=== PATIENT | female | born 1965 | race Caucasian/White ===

== ENCOUNTER 2017-08-28 08:31 | Emergency (ER) | payer OTHER ==
[2017-08-28] MEDS ORDERED: ONDANSETRON HCL INJ/PF 4 MG/2 ML SDV IV ONE (09:19)
[2017-08-28] MEDS ORDERED: ASPIRIN 81 MG TABLET, CHEWABLE PO ONE (09:19)
[2017-08-28] MEDS ORDERED: MAG HYDROX/AL HYDROX/SIMETH SUSP 30 ML UDCUP PO ONE (09:20)
[2017-08-28] MEDS ORDERED: LIDOCAINE 2% VISCOUS SOLN 20 ML UDCUP PO ONE (09:20)
[2017-08-28] MEDS ORDERED: METOCLOPRAMIDE HCL ORAL SOLN 10 MG/10 ML UDCUP PO ONE (09:20)
--- NOTE | 2017-08-28 09:25 | ER Document Report ---
ED General - General Chief Complaint: Abdominal Pain Stated Complaint: ABDOMINAL PAIN Time Seen by Provider: 08/28/17 09:16 Mode of Arrival: Ambulatory Information source: Patient, Relative Notes: 52-year-old female with past medical history of depression, anxiety presents with complaint of chest and abdominal pain. Patient states abdominal pain started one year prior to arrival. She states over the last week it has progressively worsened. Pain was initially only in the left upper quadrant but now she complains of epigastric and right upper quadrant abdominal pain. Patient's last bowel movement was yesterday. She denies any black or bloody stools. Patient has had associated nausea without vomiting. Patient's abdominal pain worsens with fatty food. Patient's chest pain is described as pressure-like. She states she awoke this morning feeling panicked and has had substernal pressure like discomfort since that time. She denies any associated nausea, lightheadedness, shortness of breath, radiation of pain. Patient states that she thinks this is secondary to anxiety. When asked what she was anxious about she says "I have a lot going on". Patient is tearful during exam. She has not tried taking anything for this pain. TRAVEL OUTSIDE OF THE [place] IN LAST 30 DAYS: No - HPI Onset/Duration: Gradual, Worse Quality of pain: Achy, Fullness, Pressure Severity: Mild Exacerbated by: Food Relieved by: Denies - Related Data Allergies/Adverse Reactions: No Known Allergies Allergy (Verified 08/28/17 08:32) Past Medical History - General Information source: Patient - Social History Smoking Status: Never Smoker Frequency of alcohol use: None Drug Abuse: None Lives with: Spouse/Significant other Family History: Reviewed & Not Pertinent Patient has suicidal ideation: No Patient has homicidal ideation: No - Medical History Medical History: Other - Depression, anxiety Review of Systems - Review of Systems Notes: Patient denies fever, chills, vomiting, headache, ear pain, sore throat, cough , shortness of breath, abdominal pain, back pain, dysuria, hematuria, rash, SI/ HI. Physical Exam - Vital signs Vitals: Temp Pulse Resp BP Pulse Ox 97.8 F 84 16 131/81 H 94 08/28/17 08:37 08/28/17 08:37 08/28/17 08:37 08/28/17 08:37 08/28/17 08:37 Interpretation: Normal. No: Tachycardic, Febrile - Notes Notes: PHYSICAL EXAMINATION: GENERAL: Well-appearing, well-nourished and in no acute distress. HEAD: Atraumatic, normocephalic. EYES: Pupils equal round and reactive to light, extraocular movements intact, conjunctiva are normal. ENT: Nares patent, oropharynx clear without exudates. Moist mucous membranes. NECK: Normal range of motion, supple without lymphadenopathy LUNGS: Breath sounds clear to auscultation bilaterally and equal. No wheezes rales or rhonchi. HEART: Regular rate and rhythm without murmurs ABDOMEN: Soft, tender to palpation in the right upper quadrant and epigastric region. No guarding, no rebound. No masses appreciated. Female : deferred Musculoskeletal: Normal range of motion, no pitting or edema. No cyanosis. NEUROLOGICAL: Cranial nerves grossly intact. Normal speech, normal gait. Normal sensory, motor exams PSYCH: Tearful, anxious SKIN: Warm, Dry, normal turgor, no rashes or lesions noted. Course - Re-evaluation Re-evalutation: Laboratory 08/28/17 08/28/17 08/28/17 08:48 08:48 08:48 WBC 5.8 RBC 4.77 Hgb 12.4 Hct 39.0 MCV 82 MCH 26.0 L MCHC 31.8 L RDW 15.6 H Plt Count 343 Seg Neutrophils % 67.5 Lymphocytes % 17.4 Monocytes % 12.8 Eosinophils % 1.4 Basophils % 0.9 Absolute Neutrophils 3.9 Absolute Lymphocytes 1.0 Absolute Monocytes 0.7 Absolute Eosinophils 0.1 Absolute Basophils 0.1 Sodium 143.6 Potassium 3.8 Chloride 100 Carbon Dioxide 31 H Anion Gap 13 BUN 7 Creatinine 0.56 Est GFR ( Amer) > 60 Est GFR (Non-Af Amer) > 60 Glucose 80 Calcium 9.7 Total Bilirubin 0.3 Direct Bilirubin 0.3 Neonat Total Bilirubin Not Reportable Neonat Direct Bilirubin Not Reportable Neonat Indirect Bili Not Reportable AST 51 H ALT 40 Alkaline Phosphatase 47 Creatine Kinase 32 CK-MB (CK-2) 0.37 Troponin I < 0.012 Total Protein 8.3 H Albumin 4.8 Lipase 82.3 Urine Color Urine Appearance Urine pH Ur Specific Edmonson Urine Protein Urine Glucose (UA) Urine Ketones Urine Blood Urine Nitrite Urine Bilirubin Urine Urobilinogen Ur Leukocyte Esterase Urine WBC (Auto) Urine RBC (Auto) U Hyaline Cast (Auto) Urine Mucus (Auto) Urine Ascorbic Acid Urine HCG, Qual 08/28/17 11:00 WBC RBC Hgb Hct MCV MCH MCHC RDW Plt Count Seg Neutrophils % Lymphocytes % Monocytes % Eosinophils % Basophils % Absolute Neutrophils Absolute Lymphocytes Absolute Monocytes Absolute Eosinophils Absolute Basophils Sodium Potassium Chloride Carbon Dioxide Anion Gap BUN Creatinine Est GFR ( Amer) Est GFR (Non-Af Amer) Glucose Calcium Total Bilirubin Direct Bilirubin Neonat Total Bilirubin Neonat Direct Bilirubin Neonat Indirect Bili AST ALT Alkaline Phosphatase Creatine Kinase CK-MB (CK-2) Troponin I Total Protein Albumin Lipase Urine Color IBAN Urine Appearance CLOUDY Urine pH 7.0 Ur Specific Edmonson 1.011 Urine Protein NEGATIVE Urine Glucose (UA) NEGATIVE Urine Ketones NEGATIVE Urine Blood NEGATIVE Urine Nitrite NEGATIVE Urine Bilirubin NEGATIVE Urine Urobilinogen NEGATIVE Ur Leukocyte Esterase NEGATIVE Urine WBC (Auto) 0 Urine RBC (Auto) 0 U Hyaline Cast (Auto) 5 Urine Mucus (Auto) RARE Urine Ascorbic Acid NEGATIVE Urine HCG, Qual NEGATIVE Abdomen/Pelvis CT 08/28/17 00:00 IMPRESSION: NO SIGNIFICANT OR ACUTE FINDINGS IN THE ABDOMEN OR PELVIS. GASTRIC BANDING HARDWARE. 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 NO HYDRONEPHROSIS. Abdomen Ultrasound 08/28/17 09:16 IMPRESSION: No gallstones Echogenic liver from diffuse hepatocellular disease Very mild left hydronephrosis Chest X-Ray 08/28/17 09:20 IMPRESSION: NO ACUTE RADIOGRAPHIC FINDING IN THE CHEST. 08/28/17 09:25 52-year-old female with past medical history of depression, anxiety presents with complaint of chest and abdominal pain. Patient was seen by myself upon arrival. Vital signs were reviewed and within normal limits. Patient is afebrile, normotensive and not hypoxic. Patient does not appear toxic or dehydrated. They are in no acute distress. Previous medical records and nursing notes reviewed. Significant findings include an ultrasound that shows an echogenic liver from diffuse hepatocellular disease. And a CAT scan that shows an incidental malrotation of the left kidney with a duplicating system but no hydronephrosis. On reevaluation patient is resting comfortably. She reports that she did have some relief of pain after GI cocktail. Chest pain has resolved. I did discuss repeating cardiac enzymes at the 6 hour brayden but patient is currently declining and states she will follow up with her primary care physician. Patient also declining pain medication at this time. I did discuss the CT findings with the patient and will provide her a copy of the report. Significant laboratory finding includes a mildly elevated AST. Patient will be discharged home in stable condition with recommendation of follow-up with her primary care physician in 3-5 days. 08/28/17 12:58 08/28/17 13:02 - Vital Signs Vital signs: Temp Pulse Resp BP Pulse Ox 97.8 F 84 17 126/78 H 100 08/28/17 08:37 08/28/17 08:37 08/28/17 12:01 08/28/17 12:01 08/28/17 12:01 - Laboratory Result Diagrams: 08/28/17 08:48 08/28/17 08:48 Laboratory results interpreted by me: 08/28/17 08/28/17 08:48 08:48 MCH 26.0 L MCHC 31.8 L RDW 15.6 H Carbon Dioxide 31 H AST 51 H Total Protein 8.3 H - Diagnostic Test Radiology reviewed: Pending, Image reviewed, Reports reviewed - EKG Interpretation by Me EKG shows normal: Sinus rhythm Discharge - Discharge Clinical Impression: Hepatocellular damage Abdominal pain Qualifiers: Abdominal location: generalized Qualified Code(s): R10.84 - Generalized abdominal pain Chest pain Qualifiers: Chest pain type: unspecified Qualified Code(s): R07.9 - Chest pain, unspecified Disposition: HOME, SELF-CARE Instructions: Abdominal Pain ([facility]), Chest Pain of Unclear Cause ([facility]) Additional Instructions: Follow up with your physician tomorrow for further care or return to the ED IMMEDIATELY if symptoms worsen or new concerns occur. If you cannot afford to follow up with your primary care physician a list of low cost clinics have been provided at the end of your discharge papers as well. You have been provided copies of the imaging we did today to show to your primary care physician. Please avoid alcohol and Tylenol until reevaluated by your doctor. Referrals: HAYDEN ROLON PA-C [Primary Care Provider] - Follow up in 3-5 days
[2017-08-28 09:35] LABS: ABSOLUTE BASOPHILS # (AUTO) 0.1 10^3/uL (0.0-0.2); ABSOLUTE EOSINOPHILS # (AUTO) 0.1 10^3/uL (0.0-0.6); ABSOLUTE MONOCYTES (AUTO) 0.7 10^3/uL (0.1-1.4); ABSOLUTE NEUT (AUTO) 3.9 10^3/uL (1.7-8.2); BASOPHILS % (AUTO) 0.9 % (0-2); EOSINOPHILS % (AUTO) 1.4 % (0-6); HEMOGLOBIN 12.4 g/dL (12.0-15.5); LYMPHOCYTES % (AUTO) 17.4 % (13-45); MEAN CORPUSCULAR HGB CONC 31.8 g/dL (32.0-36.0); MEAN CORPUSCULAR VOLUME 82 fl (80-97); MONOCYTES % (AUTO) 12.8 % (3-13); PLATELET COUNT 343 10^3/uL (150-450); RED BLOOD COUNT 4.77 10^6/uL (3.72-5.28); RED CELL DISTRIBUTION WIDTH 15.6 % (11.5-14.0); SEGMENTED NEUTROPHILS % (AUTO) 67.5 % (42-78); TOTAL CELLS COUNTED % (AUTO) 100 %; WHITE BLOOD COUNT 5.8 10^3/uL (4.0-10.5)
[2017-08-28 09:51] LABS: ALANINE AMINOTRANSFERASE 40 U/L (9-52); ALBUMIN 4.8 g/dL (3.5-5.0); ALKALINE PHOSPHATASE 47 U/L (38-126); ANION GAP 13 (5-19); ASPARTATE AMINO TRANSFERASE 51 U/L (14-36); BILIRUBIN,DIRECT 0.3 mg/dL (0.0-0.4); BILIRUBIN,TOTAL 0.3 mg/dL (0.2-1.3); BLOOD UREA NITROGEN 7 mg/dL (7-20); CALCIUM 9.7 mg/dL (8.4-10.2); CARBON DIOXIDE 31 mmol/L (22-30); CHLORIDE 100 mmol/L (98-107); CREATINE KINASE 32 U/L (30-135); GLUCOSE 80 mg/dL (75-110); LIPASE 82.3 U/L (23-300); POTASSIUM 3.8 mmol/L (3.6-5.0); SODIUM 143.6 mmol/L (137-145); TOTAL PROTEIN 8.3 g/dL (6.3-8.2)
--- NOTE | 2017-08-28 09:54 | RADIOLOGY REPORT (SQ) ---
EXAM DESCRIPTION: CHEST 2 VIEWS COMPLETED DATE/TIME: 08/28/2017 9:42 am REASON FOR STUDY: chest pain COMPARISON: None. EXAM PARAMETERS: NUMBER OF VIEWS: two views TECHNIQUE: Digital Frontal and Lateral radiographic views of the chest acquired. RADIATION DOSE: NA LIMITATIONS: none FINDINGS: LUNGS AND PLEURA: No opacities, masses or pneumothorax. No pleural effusion. MEDIASTINUM AND HILAR STRUCTURES: No masses or contour abnormalities. HEART AND VASCULAR STRUCTURES: Heart normal size. No evidence for failure. BONES: No acute findings. Mild thoracic spondylosis. HARDWARE: Lap band in the upper abdomen. OTHER: No other significant finding. IMPRESSION: NO ACUTE RADIOGRAPHIC FINDING IN THE CHEST. TECHNICAL DOCUMENTATION: JOB ID: [id number] [employer]- All Rights Reserved Reading location - IP/workstation name: [email or web address]
[2017-08-28 10:03] LABS: CREATINE KINASE MB 0.37 ng/mL (<4.55)
[2017-08-28 10:04] LABS: TROPONIN I < 0.012 ng/mL
--- NOTE | 2017-08-28 11:50 | RADIOLOGY REPORT (SQ) ---
EXAM DESCRIPTION: U/S ABDOMEN COMPLETE W/O DOP COMPLETED DATE/TIME: 08/28/2017 11:36 am REASON FOR STUDY: Right upper quadrant and epigastric abdominal pain COMPARISON: None. TECHNIQUE: Dynamic and static grayscale images acquired of the abdomen and recorded on PACS. Additio nal selected color Doppler and spectral images recorded. LIMITATIONS: Upper abdominal bowel gas FINDINGS: PANCREAS: Midline pancreas unremarkable LIVER: Normal size. No masses. Mild increased echogenicity of the liver could be seen in diffuse he patocellular disease. LIVER VASCULATURE: Normal directional flow of the main portal vein and hepatic veins. GALLBLADDER: No stones. Normal wall thickness. No pericholecystic fluid. ULTRASOUND-DETECTED FREEMAN'S SIGN: Negative. INTRAHEPATIC DUCTS AND COMMON DUCT: CBD and intrahepatic ducts normal caliber. No filling defects. D istal most common duct not well seen due to upper abdominal bowel gas INFERIOR VENA CAVA: Normal flow. AORTA: No aneurysm. RIGHT KIDNEY: Normal size. Normal echogenicity. No solid or suspicious masses. No hydronephros is. No calcifications. LEFT KIDNEY: Normal size. Normal echogenicity. No solid or suspicious masses. Very mild left h ydronephrosis and upper hydroureter No calcifications. SPLEEN: Normal size. No solid masses. PERITONEAL AND PLEURAL SPACES: No ascites or effusions. OTHER: No other significant finding. IMPRESSION: No gallstones Echogenic liver from diffuse hepatocellular disease Very mild left hydronephrosis TECHNICAL DOCUMENTATION: JOB ID: [id number] [employer]- All Rights Reserved Reading location - IP/workstation name: [email or web address]
[2017-08-28 12:15] LABS: APPEARANCE,URINE CLOUDY; BILIRUBIN,URINE NEGATIVE (NEGATIVE); COLOR,URINE AMBER; GLUCOSE, URINE NEGATIVE (NEGATIVE); KETONES,URINE NEGATIVE (NEGATIVE); LEUKOCYTE ESTERASE,URINE NEGATIVE (NEGATIVE); NITRITE,URINE NEGATIVE (NEGATIVE); PROTEIN,URINE NEGATIVE (NEGATIVE); URINE SPECIFIC GRAVITY 1.011; UROBILINOGEN,URINE NEGATIVE mg/dL (<2.0)
--- NOTE | 2017-08-28 12:41 | RADIOLOGY REPORT (SQ) ---
EXAM DESCRIPTION: CT ABD/PELVIS WITH IV ORAL COMPLETED DATE/TIME: 08/28/2017 12:15 pm REASON FOR STUDY: luq pain COMPARISON: Ultrasound dated 08/28/2017. TECHNIQUE: CT scan of the abdomen and pelvis performed with intravenous and oral contrast using jerry cristopher scanning technique with dynamic intravenous contrast injection. Images reviewed with lung, soft t issue, and bone windows. Reconstructed coronal and sagittal MPR images reviewed. Delayed images for e valuation of the urinary system also acquired. All images stored on PACS. All CT scanners at this facility use dose modulation, iterative reconstruction, and/or weight based d osing when appropriate to reduce radiation dose to as low as reasonably achievable (ALARA). [facility]: Dose Right [facility]: CareDose [facility]: Dose Right [facility]: Teradose 4D [facility]: SafetyCertified CONTRAST TYPE AND DOSE: contrast/concentration: Isovue 370.00 mg/ml; Total Contrast Delivered: 76.0 ml; Total Saline Delivered: 67.0 ml RENAL FUNCTION: BUN 7 creatinine 0.56. RADIATION DOSE: CT Rad equipment meets quality standard of care and radiation dose reduction techniq ues were employed. CTDIvol: 8.8 - 12.6 mGy. DLP: 1162 mGy-cm.. LIMITATIONS: None. FINDINGS: LOWER CHEST: No significant findings. No nodules or infiltrates. LIVER: Normal size. No masses. No dilated ducts. SPLEEN: Normal size. No focal lesions. PANCREAS: No masses. No significant calcifications. No adjacent inflammation or peripancreatic fluid collections. Pancreatic duct not dilated. GALLBLADDER: No identified stones by CT criteria. No inflammatory changes to suggest cholecystitis. ADRENAL GLANDS: No significant masses or asymmetry. RIGHT KIDNEY AND URETER: No solid masses. No significant calcification. No hydronephrosis or hydroure ter. LEFT KIDNEY AND URETER: Incidental malrotation of the kidney with duplicated collecting system. No s olid masses. No significant calcification. No hydronephrosis or hydroureter. AORTA AND VESSELS: No aneurysm. No dissection. Renal arteries, SMA, celiac without stenosis. RETROPERITONEUM: No retroperitoneal adenopathy, hemorrhage or masses. BOWEL AND PERITONEAL CAVITY: Gastric banding hardware. No obstruction. No visualized masses. No free fluid. No inflammatory changes or thickening of bowel wall. APPENDIX: Not visualized. PELVIS: No significant masses. Normal bladder. No free fluid. ABDOMINAL WALL: No masses. No hernias. BONES: No significant or acute findings. OTHER: No other significant finding. IMPRESSION: NO SIGNIFICANT OR ACUTE FINDINGS IN THE ABDOMEN OR PELVIS. GASTRIC BANDING HARDWARE. I NCIDENTAL MALROTATION OF THE LEFT KIDNEY WITH DUPLICATED COLLECTING SYSTEM. NO HYDRONEPHROSIS. TECHNICAL DOCUMENTATION: JOB ID: [id number] Quality ID # [id number]: Final reports with documentation of one or more dose reduction techniques (e.g., Au tomated exposure control, adjustment of the mA and/or kV according to patient size, use of iterative reconstruction technique) 2010 [employer]- All Rights Reserved Reading location - IP/workstation name: [email or web address]
[2017-08-28 13:31] VITALS: BP 130/82
--- NOTE | 2017-08-28 13:35 | EKG REPORT ---
SEVERITY:- NORMAL ECG - SINUS RHYTHM : Confirmed by: Doyle Walden MD 28-Aug-2017 13:34:27
== END 2017-08-28 13:31 | disposition home or self-care (01) ==
LOC: ER 08:31
DX: R10.9 Unspecified abdominal pain (principal); F32.9 Major depressive disorder, single episode, unspecified; R10.84 Generalized abdominal pain; R07.9 Chest pain, unspecified; K76.89 Other specified diseases of liver
CPT/HCPCS: 93005; 99285; 96374; 36415; 82553; 82550; 83690; 85025; 81025; 80053; 81001; 84484; 71046; 76700; 74177; 93010; J3490; J2405